=== PATIENT | female | born 1985 | race Caucasian/White ===

== ENCOUNTER 2018-11-28 08:34 | Inpatient (IN) ==
[2018-11-28] MEDS ORDERED: *HR* Nalbuphine 10 MG/ML AMPUL IM ONE (09:15)
--- NOTE | 2018-11-28 09:18 | Emergency Department Note ---
Disposition Clinical Impression: Ectopic Qualifiers: Location of ectopic : unspecified location Intrauterine status: unspecified Qualified Code(s): O00.90 - Unspecified ectopic without intrauterine Disposition: Admitted As Inpatient Time of Disposition: 13:24 Female Urogenital HPI - General Chief complaint: ED Vaginal Bleeding Stated complaint: r/o Ectopic Time Seen by Provider: 11/28/18 08:37 Source: patient Mode of arrival: private vehicle Limitations: no limitations Nursing Notes Reviewed: Yes Vital Signs Reviewed: Yes - History of Present Illness HPI Narrative: Patient's last menstrual period was 10/15/2018. She is a . She is currently being evaluated for an age-indeterminate . It has been undetermined whether the patient has an intrauterine versus ectopic . She had a beta Quant drawn 2 days ago the results of she is not awar e. She complains of left lower abdominal pain and vaginal bleeding. The bleeding has been intermittently present for several days. Blood type Rh+ Pt Subjective Complaint: vaginal bleeding Quality: cramping Duration: intermittent Improves with: none Worsens with: none Vaginal discharge: blood, blood clots : yes Associated symptoms: Reports: other (Back pain) - Related Data Home Medications Medication Instructions Recorded Confirmed [facility] Vitamins Tablet 500 mg PO DAILY 11/24/18 11/28/18 Allergies Allergy/AdvReac Type Severity Reaction Status Date / Time No Known Allergies Allergy Verified 11/20/15 09:29 All systems ED: reviewed and negative except as stated. Constitutional: Reports: as per HPI Eyes: Reports: as per HPI ENT ED: Reports: as per HPI Cardiovascular: Reports: as per HPI Respiratory: Reports: as per HPI Gastrointestinal: Reports: abdominal pain Genitourinary: Reports: other (Vaginal bleeding) Musculoskeletal: Reports: back pain Integumentary: Reports: as per HPI Neurological: Reports: as per HPI Psychiatric: Reports: as per HPI Endocrine: Reports: as per HPI Hematological/Lymphatic: Reports: as per HPI Allergic/Immunologic: Reports: as per HPI Past Medical History - Past Medical History Source: old records reviewed Medical history: Reports: no medical history Surgical history: Reports: Psychiatric history: Reports: no psych history : 2 Para: 1 - Social History Smoking Status: Never smoker Smokeless Tobacco Status: No Alcohol use: Reports: none Drug use: Reports: none Physical Exam Mildly uncomfortable appearing - General Limitations: no limitations General appearance: alert - Head Head exam: atraumatic - Eye Eye exam: Present: normal appearance - ENT ENT exam: normal exam - Neck Neck exam: Present: normal inspection, full ROM - Chest Chest inspection: Present: normal inspection, symmetric chest wall rise - Respiratory Respiratory exam: Present: normal lung sounds bilaterally - Cardiovascular Cardiovascular exam: Present: regular rate, normal rhythm - Abdominal Exam Abdominal exam: Present: soft, tenderness (Mild tenderness left lower quadrant without guarding, rebound, rigidity) - Rectal Exam Rectal exam: Present: deferred - Extremities Exam Extremities exam: Present: normal inspection - Neurological Exam Neurological exam: Present: alert, oriented X3, CN II-XII intact - Psychiatric Psychiatric exam: Present: normal affect, normal mood - Skin Skin exam: Present: warm, dry, intact Course Course Narrative: Patient presented with pelvic pain and vaginal bleeding. Concern for ectopic . I did review the transcribed report of her most recent pelvic ultrasound in which no intrauterine was identified as well as her beta Quant which was 3402 days ago. I will repeat both studies today. Analgesics were offered - Reevaluation(s) Reevaluation #1: Case discussed with the radiologist. He conveys concern for complex free fluid in the adnexa and concern for ectopic . Time: 11:48 - Consultations Consultation #1: Call placed to Dr. Ordaz, Ob transportation services representative. She recs checking CBC, LFT's Cr as patient may be a candidate for methotrexate Time: 11:48 Consultation #2: Dr. Ordaz to evaluate patient at bedside Time: 12:36 Vital Signs Temperature 98.2 F 11/28/18 08:37 Pulse Rate 71 11/28/18 08:37 Respiratory Rate 18 11/28/18 08:37 Blood Pressure 132/83 11/28/18 08:37 O2 Sat by Pulse Oximetry 99 11/28/18 08:37 Temperature 98.2 F 11/28/18 08:37 Pulse Rate 66 11/28/18 13:47 Respiratory Rate 16 11/28/18 13:47 Blood Pressure 116/80 11/28/18 13:47 O2 Sat by Pulse Oximetry 100 11/28/18 13:47 Oxygen Delivery Oxygen Delivery Room Air Urogenital-Female - Medical Records Medical records reviewed: Yes I reviewed the patient's medical records. - Lab Data Lab results reviewed: Yes I reviewed the patient's lab results. Result diagrams: 11/28/18 09:16 11/28/18 09:16 Lab Results 11/28/18 11/28/18 11/28/18 Range/Units 09:16 09:16 09:16 WBC 11.7 H (4.3-11.1) K/mcL RBC 4.30 (3.82-4.97) M/mcL Hgb 13.1 (11.5-15.4) g/dL Hct 38.4 (35.3-44.9) % MCV 89.3 (83.0-100.0) fL MCH 30.5 (28.0-33.3) pg MCHC 34.1 (31.6-35.5) g/dL RDW 12.5 (11.5-14.5) % Plt Count 257 (140-400) K/mcL MPV 10.0 (9.4-12.4) fL Immature Gran % 0.3 (0-4) % Seg Neutrophils % 88.5 % Lymphocytes % 6.8 % Monocytes % 4.1 % Eosinophils % 0.1 % Basophils % 0.2 % Neutrophils # 10.4 H (1.6-8.9) K/mcL Lymphocytes # 0.8 (0.6-4.6) K/mcL Monocytes # 0.5 (0.0-1.3) K/mcL Eosinophils # 0.0 (0.0-0.6) K/mcL Basophils # 0.0 (0.0-0.2) K/mcL Sodium (136-145) mEq/L Potassium (3.5-5.1) mEq/L Chloride (98-107) mEq/L Carbon Dioxide (23-29) mEq/L BUN (6-20) mg/dL Creatinine (0.60-1.20) mg/dL Est GFR ( Amer) (> 60) Est GFR (Non-Af Amer) (> 60) BUN/Creatinine Ratio (6-26) Glucose (70-105) mg/dL Calculated Osmolality (280-300) Calcium (8.6-10.3) mg/dL Total Bilirubin (0.3-1.0) mg/dL AST (13-39) Units/L ALT (7-52) Units/L Alkaline Phosphatase (34-104) Units/L Serum Total Protein (6.4-8.9) g/dL Albumin (3.5-5.7) g/dL Globulin (2.4-3.5) g/dL Albumin/Globulin Ratio (1.1-2.2) Beta HCG, Quant 2767 H (Less than 5) mIU/mL Blood Type O POSITIVE Antibody Screen NEGATIVE 11/28/18 Range/Units 09:16 WBC (4.3-11.1) K/mcL RBC (3.82-4.97) M/mcL Hgb (11.5-15.4) g/dL Hct (35.3-44.9) % MCV (83.0-100.0) fL MCH (28.0-33.3) pg MCHC (31.6-35.5) g/dL RDW (11.5-14.5) % Plt Count (140-400) K/mcL MPV (9.4-12.4) fL Immature Gran % (0-4) % Seg Neutrophils % % Lymphocytes % % Monocytes % % Eosinophils % % Basophils % % Neutrophils # (1.6-8.9) K/mcL Lymphocytes # (0.6-4.6) K/mcL Monocytes # (0.0-1.3) K/mcL Eosinophils # (0.0-0.6) K/mcL Basophils # (0.0-0.2) K/mcL Sodium 136 (136-145) mEq/L Potassium 4.0 (3.5-5.1) mEq/L Chloride 108 H (98-107) mEq/L Carbon Dioxide 18 L (23-29) mEq/L BUN 8 (6-20) mg/dL Creatinine 0.74 (0.60-1.20) mg/dL Est GFR ( Amer) > 60 (> 60) Est GFR (Non-Af Amer) > 60 (> 60) BUN/Creatinine Ratio 11 (6-26) Glucose 95 (70-105) mg/dL Calculated Osmolality 280 (280-300) Calcium 8.9 (8.6-10.3) mg/dL Total Bilirubin 0.3 (0.3-1.0) mg/dL AST 16 (13-39) Units/L ALT 16 (7-52) Units/L Alkaline Phosphatase 60 (34-104) Units/L Serum Total Protein 6.5 (6.4-8.9) g/dL Albumin 4.2 (3.5-5.7) g/dL Globulin 2.3 L (2.4-3.5) g/dL Albumin/Globulin Ratio 1.8 (1.1-2.2) Beta HCG, Quant (Less than 5) mIU/mL Blood Type Antibody Screen - Radiology Data Radiology results reviewed: Yes I reviewed the patient's radiology results. Critical Care Time Critical Care Time: Yes Total Critical Care Time: 30 Attestation: The high probability of a clinically significant, sudden or life threatening deterioration of the [] system(s) required my full and direct attention, intervention and personal management. The aggregate critical care time was [] mi nutes. This time is in addition to time spent performing reported procedures but includes the following: [] Data Review and interpretation [] Patient assessment and monitoring of vital signs [] Documentation [] Medication orders and management
[2018-11-28 12:05] LABS: Basophils % 0.2 %; Eosinophils % 0.1 %; Hematocrit 38.4 % (35.3-44.9); Hemoglobin 13.1 g/dL (11.5-15.4); Immature Granulocytes % 0.3 % (0-4); Lymphocytes # 0.8 K/mcL (0.6-4.6); Lymphocytes % 6.8 %; Mean Corpuscular HGB Conc 34.1 g/dL (31.6-35.5); Mean Corpuscular Hemoglobin 30.5 pg (28.0-33.3); Mean Corpuscular Volume 89.3 fL (83.0-100.0); Monocytes # 0.5 K/mcL (0.0-1.3); Monocytes % 4.1 %; Neutrophils # 10.4 K/mcL (1.6-8.9); Platelet Count 257 K/mcL (140-400); Red Cell Distribution Width 12.5 % (11.5-14.5); Segmented Neutrophils % 88.5 %; White Blood Count 11.7 K/mcL (4.3-11.1)
[2018-11-28 12:16] LABS: Alanine Aminotransferase 16 Units/L (7-52); Albumin 4.2 g/dL (3.5-5.7); Albumin/Globulin Ratio 1.8 (1.1-2.2); Alkaline Phosphatase 60 Units/L (34-104); Aspartate Amino Transferase 16 Units/L (13-39); BUN/Creatinine Ratio 11 (6-26); Bilirubin,Total 0.3 mg/dL (0.3-1.0); Blood Urea Nitrogen 8 mg/dL (6-20); Calcium 8.9 mg/dL (8.6-10.3); Carbon Dioxide 18 mEq/L (23-29); Chloride 108 mEq/L (98-107); Globulin 2.3 g/dL (2.4-3.5); Glucose 95 mg/dL (70-105); Osmolality,Calculated 280 (280-300); Sodium 136 mEq/L (136-145); Total Protein 6.5 g/dL (6.4-8.9); eGFR For African Americans > 60 (> 60); eGFR For Non-African Americans > 60 (> 60)
--- NOTE | 2018-11-28 13:42 | OB/GYN History & Physical ---
Date of Encounter: 11/28/18 Time of Encounter: 13:40 Assessment and Plan (1) Ruptured left tubal ectopic causing hemoperitoneum Current visit: Yes Status: Acute We discussed laparoscopic evaluation of the pelvis and adnexa. Clinical findings and ultrasound suggest ruptured ectopic in the left adnexa. She is aware that on occasion this may be on the wrong side. At this time we will plan to proceed with laparoscopic evaluation. Possible linear salpingostomy versus a salpingectomy. She agrees to proceed. She is aware is always a risk of damage to bowel, damage to bladder, future infertility, or requirement of blood products. Consents are signed. I discussed the case with anesthesia. We will add her as an urgent operating room case. History of Present Illness Chief complaint: Back and pelvic pain, positive test HPI: Ms. Merlos is a 33 year old 2 para 1 female. She presents emergency room today with progressively worsening back and pelvic pain. She has had a positive test and has been following with her primary fire behavior analyst. Her quantitative beta hCG levels have been inappropriately fluctuating. They were in the process of evaluation for a possible miscarriage versus an ectopic . Her quantitative beta hCG levels are now decreasing. She is also having vaginal bleeding. Her back and pelvic pain is worsening. Ultrasound was performed in the emergency department today. Within the uterus there is a pseudophakic and no evidence of viable intrauterine . In the left adnexa there is a complex adnexal mass. The uterus and pelvis have a large amount of free fluid probable hemorrhage. Findings are consistent with approximate ectopic. She is in good medical health. She has no chronic medical conditions. Her prior surgery has been a section. She is happily and has a supportive partner with her today. Past Med Surg Social Fam HX - Past Medical History Medical history: no medical history Psychiatric history: no psych history - Past Surgical History Surgical History: - Social History Smoking Status: Never smoker Smokeless Tobacco Status: No Alcohol use: none Drug use: none - Family History Father Family Member Ethnicity: Non- Living Status: Still Living Hx Family Cardiac Disorders: No Hx Family Respiratory Disorders: Yes (LATENT TB) Hx Family Cancer: No Hx Family GI Disorders: No Hx Family Endocrine Disorder: Yes (Hep C+) Hx Family Neuromuscular Disorders: No Hx Family Neurologic Disorders: No Hx Family HEENT Disorders: No Hx Family Autoimmune Disorders: No Obstetrical History - Pregnancies : 2 Para: 1 Term: 1 - History/Complications History/Complications: primary was performed for failure to progress Medications and Allergies Cephalexin [Keflex] 500 mg PO BID 3 Days capsule 11/22/18 [Rx] Gnp Vitamins Tablet 500 mg PO DAILY 11/24/18 [History] Tylenol 650 mg PO PRN PRN 11/24/18 [History] Allergy/AdvReac Type Severity Reaction Status Date / Time No Known Allergies Allergy Verified 11/20/15 09:29 Review of System OB - Gastrointestinal Gastrointestinal: abdominal pain - Genitourinary Genitourinary: abnormal vaginal bleeding, flank pain Exam - Vital Signs Vital signs: Initial Vital Signs Temp Pulse Resp BP Pulse Ox 98.2 F 71 18 132/83 99 11/28/18 08:37 11/28/18 08:37 11/28/18 08:37 11/28/18 08:37 11/28/18 08:37 - Constitutional Constitutional: well developed, well nourished - HEENT HEENT: Normocephaly - Neck Neck exam: full ROM - Lungs Respiratory exam: CTAB - Cardiovascular Cardiovascular exam: RRR - Abdomen Abdomen: Present: diffuse tenderness (Abdomen is mildly tender with deep pa lpation, no guarding) - Extremities Extremities exam: full ROM - Adnexa Adnexa: bilateral: tenderness Results Result Diagrams: 11/28/18 09:16 11/28/18 09:16 Abnormal lab results WBC 11.7 K/mcL (4.3-11.1) H 11/28/18 09:16 Neutrophils # 10.4 K/mcL (1.6-8.9) H 11/28/18 09:16 Chloride 108 mEq/L (98-107) H 11/28/18 09:16 Carbon Dioxide 18 mEq/L (23-29) L 11/28/18 09:16 Globulin 2.3 g/dL (2.4-3.5) L 11/28/18 09:16 Beta HCG, Quant 2767 mIU/mL (Less than 5) H 11/28/18 09:16 All other labs normal. US - abdomen: other (Pelvic ultrasound was performed. Uterus is normal appearing. There is a small pseudocyst sac within the endometrial cavity. Posterior and anterior cul-de-sac and the uterus or floating and fluid. Right ovary was normal-appearing. Left adnexa and there is a complex adnexal mass noted. Images were personally reviewed in the computer.)
[2018-11-28] MEDS ORDERED: *HR* Nalbuphine 10 MG/ML AMPUL IV ONE (13:52)
[2018-11-28] MEDS ORDERED: *HR* Propofol 200 MG/20 ML VIAL IVP ONE ×2 (13:59→16:48)
[2018-11-28] MEDS ORDERED: Lidocaine -MPF 2% 2 ML VIAL ONE (14:00)
[2018-11-28] MEDS ORDERED: *HR* Succinylcholine 200 MG/10 ML VIAL IVP ONE (14:00)
[2018-11-28] MEDS ORDERED: Dexamethasone 4 MG/ML VIAL ONE (14:00)
[2018-11-28] MEDS ORDERED: Ondansetron 4 MG/2 ML VIAL ONE (14:00)
--- NOTE | 2018-11-28 14:33 | Anesthesia Evaluation PreOp ---
Date of Encounter: 11/28/18 Time of Encounter: 14:45 - Past History Planned Operation: Diagnostic Laparoscopy/Repair Ectopic Cardiac History: Denies any Significant Hx Pulmonary History: Denies Any Significant HX LEATHER GRADER History: Denies Any Significant HX Other Medical History: Other (Obese) Anesthesia History: No Prior Anesthetic Complications : Yes ( ectopic ) Test: Positive Alcohol Use: none Drug use: none Medications and Allergies Gnp Vitamins Tablet 500 mg PO DAILY 11/24/18 [History] Allergy/AdvReac Type Severity Reaction Status Date / Time No Known Allergies Allergy Verified 11/20/15 09:29 - Meds/Allergy Pre-op Review Medications Reviewed: Yes Allergies Reviewed: Yes Beta Blockers on Current Med List: No Anesthesia Results - Labs 11/28/18 09:16 11/28/18 09:16 Laboratory Tests 11/24/18 11/28/18 11/28/18 12:20 09:16 09:16 Hgb 13.1 Hct 38.4 Plt Count 257 Sodium 136 Potassium 4.0 BUN 8 Creatinine 0.74 Serum , Qual Positive A Anesthesia Exam O2 Sat Height 1.63 m Weight 116.437 kg O2 Sat by Pulse Oximetry 100 O2 Sat by Pulse Oximetry 100 O2 Sat by Pulse Oximetry 100 O2 Sat by Pulse Oximetry 97 O2 Sat by Pulse Oximetry 100 O2 Sat by Pulse Oximetry 99 Vital Signs Temp Pulse Resp BP Pulse Ox 98.2 F 71 18 132/83 99 11/28/18 08:37 11/28/18 08:37 11/28/18 08:37 11/28/18 08:37 11/28/18 08:37 Height: 5'4 Weight: 256 lbs NPO (# of Hours): MN Pain Scale: 1 - HEENT Pupil (Motor): Pupils equal, EOMI Mallampati: II Teeth: Normal Oral Opening: Greater than 3 - LEATHER GRADER LOC: Oriented LEATHER GRADER Motor: Normal RUE, Normal LUE, Normal RLE, Normal LLE, Normal Face LEATHER GRADER Sensory: Normal: RUE, LUE, RLE, LLE, Face - Cardiac Rhythm: Regular Murmur: None JVD: No Carotid Bruit: No - Pulmonary Breath Sounds: bilateral Clear Respiratory Effort: Symmetrical Anesthesia Assess/Plan ASA Score: 2, E Level of consciousness: Cooperative, Oriented Anesthetic Plan: General Autologous Blood: No Monitoring Plan: Standard Monitors Recovery Plan: PACU (Discussed GA, agrees to proceed)
[2018-11-28] MEDS ORDERED: *HR* OxyCODONE Immed Rel 5 MG TABLET PO PRN (14:35)
[2018-11-28] MEDS ORDERED: *HR* HYDROmorphone (PF) 1 MG/ML SYRINGE IVP PRN (14:35)
[2018-11-28] MEDS ORDERED: Famotidine 20 MG/2 ML VIAL ONE (14:41)
[2018-11-28] MEDS ORDERED: Acetaminophen IV 1,000 MG/100 ML INFUS..BTL ONE (14:41)
[2018-11-28] MEDS ORDERED: Lidocaine -MPF 4% 5 ML AMPUL ONE (15:30)
[2018-11-28] MEDS ORDERED: Bupivacaine/EPI 1:200k 0.25%PF 10 ML VIAL INFILT ONE (15:33)
[2018-11-28] MEDS ORDERED: *HR* FentaNYL (PF) 100 MCG/2 ML VIAL ONE (15:42)
[2018-11-28] MEDS ORDERED: *HR* Midazolam HCl 2 MG/2 ML VIAL ONE (15:43)
[2018-11-28] MEDS ORDERED: *HR* Rocuronium Bromide 50 MG/5 ML VIAL ONE (15:50)
[2018-11-28] MEDS ORDERED: Neostigmine Methylsulfate 3 MG/3 ML SYRINGE ONE (16:41)
[2018-11-28] MEDS ORDERED: Ketorolac 30 MG/ML VIAL ONE (16:48)
--- NOTE | 2018-11-28 16:57 | OB/GYN Procedure Note ---
Laparoscopy Procedure - Diagnosis Date of procedure: 11/28/18 Pre-op diagnosis: ectopic Post-op diagnosis: same - Procedure Laparoscopy procedure: other (Left linear salpingostomy) Surgeon: Hilary Ordaz Was there an entry level assistant manager present: No Anesthesia provider: Fidel Farris Anesthesia Type: General Estimated blood loss (cc): 10 (500 mL preoperative, minimal intraoperative) Complications: none Specimens: tubal contents Findings: Normal appearing uterus, normal right ovary and right fallopian tube, left ovary with ovulatory cyst, left fallopian tube dilated with ectopic , ectopic and bleeding through the end of the fallopian tube. 500 mL estimated blood preoperative. Left sidewall omental adhesion. Disposition: PACU Narrative: Prep diagnosis is ruptured ectopic Postoperative diagnosis is the same Procedure was a diagnostic laparoscopy, left linear salpingostomy Preoperative blood loss 500 mL Intraoperative blood loss minimal Complications none Anesthesia Gen. Patient was taken to the operative suite and after adequate general anesthesia was assured she is prepped and draped in the usual sterile fashion. A weighted speculum was placed within the vaginal vault and the anterior lip of the cervix was grasped with a single-tooth tenaculum and a cannula was placed within the uterine cervix and used for uterine manipulation. Under sterile condition attention was turned towards the patient's abdomen. A 5 mm umbilical incision was created and a 5 mm trocar was placed without difficulty. Insufflation was achieved. The findings were as noted as above. She had a significant amount of blood in the posterior and anterior cul-de-sac. The left fallopian tube with appeared to be markedly dilated with ectopic products of conception. There is bleeding of the distal portion of the fallopian tube. A suprapubic 5 mm trocar was placed under direct visualization without difficulty. A linear salpingostomy was performed and the left fallopian tube. The left fallopian tube was suction irrigated. The ectopic contents were expressed. The ectopic contents were removed with a grasper and pieces. The tube was evaluated. She had minimal bleeding. Suction irrigation was performed within the fallopian tube and she had good flow of the distal end and no evidence of remaining bleeding was noted. Suction irrigation was performed of the blood products within the abdomen. Instruments removed from the abdominal cavity. Incisions were closed in subcuticular fashion. Patient tolerated the procedure well. Sponge lap and needle and instrument counts were assured to be correct. Dermabond was placed. Patient was taken to the recovery room. We had no intraoperative complications.
--- NOTE | 2018-11-28 17:34 | Event Note ---
Date of Encounter: 11/28/18 Time of Encounter: 17:33 Dr. Ordaz was unable to get RX for percocet for patient. Patient's OAR[facility] report reviewed by SHIV Hendrickson and RX was printed.
[2018-11-28] MEDS ORDERED: *HR* OxyCODONE/APAP 5/325 TABLET PO PRN (17:46)
--- NOTE | 2018-11-28 19:20 | Anesthesia Evaluation Post Op ---
Date of Encounter: 11/28/18 Time of Encounter: 17:40 - Vital Signs Vital Signs: Vital Signs/O2 Sat/Glucose, Most Current Temp Pulse Resp BP Pulse Ox 11/28/18 18:56 98.1 F 81 14 116/74 99 11/28/18 18:24 98.0 F 65 14 123/82 99 11/28/18 17:49 97.5 F L 62 20 127/83 100 11/28/18 17:36 98.5 F 54 17 123/82 97 11/28/18 17:26 54 19 129/88 100 11/28/18 17:16 68 18 105/79 96 11/28/18 17:06 97.8 F 67 20 129/98 95 - Lungs Lungs: Clear Ascult./Percussion - Airway Airway: Non-obstructed - Cardiovascular Regular Rate - Mental Status Mental Status: Alert & Oriented, Answers Appropriately - Pain Pain Scale: 0 - Nausea Vomiting Nausea Vomiting: Not Present - Hydration Hydration: Ice chips - Discharge PostOp Status: Transfer Patient to floor
[2018-11-28 20:30] VITALS: BP 116/71
[2018-11-29] MEDS ORDERED: Prenatal Vit/FA 1 EACH TABLET PO SCH (09:00)
--- NOTE | 2018-12-01 14:55 | Discharge Summary ---
Outpatient Proc Discharge Plan - Plan Prescriptions: Oxycodone HCl/Acetaminophen [Percocet 5-325 mg Tablet] 1 each PO Q6H PRN 3 Days #10 tablet PRN Reason: Pain Home Medications: Gnp Vitamins Tablet 500 mg PO DAILY 11/24/18 [History] Oxycodone HCl/Acetaminophen [Percocet 5-325 mg Tablet] 1 each PO Q6H PRN 3 Days #10 tablet 11/28/18 [Rx]
== END 2018-11-28 20:25 | disposition home or self-care (01) | DRG 818 ==
LOC: 1NENUOBS 08:34 → EMEROOARM 08:34 → OBSVTOIN 13:50 → 1NENUOBS 14:29
PROVIDERS: ADMIT Obstetrics & Gynecology; ATTEND Obstetrics & Gynecology